=== PATIENT | female | born 1980 | race Caucasian/White ===

== ENCOUNTER 2017-11-05 17:46 | Emergency (ER) | payer OTHER ==
[2017-11-05] MEDS: TETRACAINE 0.5% 4 ML OPH BOTH EYES (18:45)
[2017-11-05] MEDS: FLUORESCEIN STRIP BOTH EYES (18:45)
[2017-11-05] MEDS: ERYTHROMYCIN 1 GM OPH OINT LEFT EYE (18:54)
== END 2017-11-05 19:16 | disposition home or self-care (01) ==
LOC: FTE 17:46
DX: H18.822 Corneal disorder due to contact lens, left eye (principal)
CPT/HCPCS: 99283; Z7502